=== PATIENT | male | born 1980 | race Caucasian/White ===

== ENCOUNTER 2020-06-07 10:59 | Inpatient (IN) | payer BC ==
[~2020-06-07] VITALS: Ht 177.8 cm; Wt 68.5 kg
[2020-06-07] MEDS ORDERED: SODIUM CHLORIDE FLUSH 10ML SYR IVF ONE (11:30)
[2020-06-07 11:59] LABS: MEAN CORPUSCULAR HEMOGLOBIN 27.2 pg (27.5-34.5); MEAN CORPUSCULAR HGB CONC 32.6 g/dL (33.2-36.2); MEAN PLATELET VOLUME 8.7 fL (7.4-10.4); PLATELET COUNT 155 x10^3/uL (130-400); RED BLOOD COUNT 4.82 x10^6/uL (4.38-5.82); RED CELL DISTRIBUTION WIDTH 16.3 % (9.4-14.8)
[2020-06-07] MEDS ORDERED: FUROSEMIDE 40 MG/4 ML IVPush ONE (12:00)
[2020-06-07 12:11] LABS: ALBUMIN 1.1 g/dL (3.4-5.0); ANION GAP 22 mmol/L (5-15); CALCIUM 7.7 mg/dL (8.5-10.1); CHLORIDE 97 mmol/L (98-107)
[2020-06-07 12:17] LABS: ALANINE AMINOTRANSFERASE 35 U/L (12-78); ALKALINE PHOSPHATASE 92 U/L (45-117); BILIRUBIN,TOTAL 0.2 mg/dL (0.2-1.0); CREATININE 0.94 mg/dL (0.7-1.3); TOTAL PROTEIN 3.9 g/dL (6.4-8.2); TROPONIN I < 0.015 ng/mL (0.000-0.045)
[2020-06-07] MEDS ORDERED: SODIUM CHLORIDE 0.9%, 500ML IVBOLUS ONE (12:30)
[2020-06-07] MEDS ORDERED: PLEASE ENTER ALLERGIES MC SCH (12:30)
--- NOTE | 2020-06-07 12:30 | NUR ---
PT RESTING COMFORTABLY. TBADM. US AT BEDSIDE.
[2020-06-07 12:36] LABS: MD YES
[2020-06-07 12:39] LABS: BAND#(MANUAL) 1.35 x10^3/uL; BANDS%(MANUAL) 10 % (0-7); EOS#(MANUAL) 0.27 x10^3/uL (0.0-0.4); EOS% (MANUAL) 2 % (1-7); LYMPH#(MANUAL) 0.54 x10^3/uL (1-3.4); LYMPHS% (MANUAL) 4 % (22-44); METAMYELOCYTES# (MANUAL) 0.95 x10^3/uL (0-0); METAMYELOCYTES% (MANUAL) 7 % (0-1); MONOS#(MANUAL) 0.95 x10^3/uL (0.3-2.7); MONOS% (MANUAL) 7 % (2-9); SEG#(MANUAL) 9.45 x10^3/uL (1.8-6.8); SEGS% (MANUAL) 70 % (42-75)
[2020-06-07 12:40] LABS: ANISOCYTOSIS 1+; PMNS WITH VACUOLES 1+; POLYCHROMASIA 1+
[2020-06-07 12:41] LABS: <PLATELET ESTIMATE> ADEQUATE; <PLT MORPHOLOGY> NORMAL PLT MORPH
[2020-06-07] MEDS ORDERED: FUROSEMIDE 20 MG/2 ML ONE (12:55)
--- NOTE | 2020-06-07 13:07 | NUR ---
Patient is resting comfortably in bed. Vital Signs within normal limits.
--- NOTE | 2020-06-07 13:12 | NUR ---
PT MEDICATED PER MAR. UPDATED PT ON NEED FOR UA. PT STATES HE WILL TRY HIS BEST.
[2020-06-07 13:19] LABS: CHOL/HDL RATIO 3.3; LDL/HDL RATIO 0.6 (0.5-3.0)
[2020-06-07 13:20] LABS: INTERNATIONAL NORMALIZED RATIO 1.02 (0.93-1.1); PROTHROMBIN TIME 10.9 Seconds (9.6-11.5)
[2020-06-07] MEDS ORDERED: BUTALB/APAP/CAFFEINE 50MG/325MG/40MG PO PRN ×2 (13:30)
[2020-06-07] MEDS ORDERED: GUAIFENESIN/DM 200-20MG, 10ML UDC PO PRN (13:30)
[2020-06-07] MEDS ORDERED: LABETALOL 5MG/ML, 20ML IVPush PRN (13:30)
[2020-06-07] MEDS ORDERED: ENALAPRILAT 1.25 MG/ML, 2ML IVPush PRN (13:30)
[2020-06-07] MEDS ORDERED: ONDANSETRON ODT 4 MG PO PRN (13:30)
[2020-06-07] MEDS ORDERED: ONDANSETRON 2MG/ML, 2ML IVPush PRN (13:30)
[2020-06-07 14:09] LABS: FREE T4 (FREE THYROXINE) 0.81 ng/dL (0.76-1.46)
--- NOTE | 2020-06-07 14:22 | NUR ---
US AT BEDSIDE. RPT CALLED TO [facility]. PT RTG AFTER US.
[2020-06-07 14:26] LABS: MICROSCOPIC INDICATED
[2020-06-07] MEDS ORDERED: BACLOFEN 10 MG TABLET PO PRN (14:30)
[2020-06-07 15:05] VITALS: BP 133/93
[2020-06-07 15:12] VITALS: BP 133/93
[2020-06-07] MEDS: HEPARIN 5,000 UNITS/ML, 1ML SQ SCH (16:34)
[2020-06-07 17:56] LABS: CHLORIDE,URINE RANDOM 96 mmol/L; POTASSIUM,URINE RANDOM 30 mmol/L; SODIUM,URINE RANDOM 61 mmol/L
[2020-06-07] MEDS: ALBUMIN HUMAN 25% 100 ML IV SCH (18:00)
[2020-06-07 18:59] VITALS: BP 111/76
[2020-06-07] MEDS: MELATONIN 5 MG TABLET PO SCH (21:06)
[2020-06-08] MEDS: HEPARIN 5,000 UNITS/ML, 1ML SQ SCH ×4 (00:27→19:26)
[2020-06-08] MEDS: ALBUMIN HUMAN 25% 100 ML IV SCH ×2 (00:28→08:34)
[2020-06-08 02:00] VITALS: BP 114/72
[2020-06-08 03:25] LABS: MEAN CORPUSCULAR HEMOGLOBIN 27.5 pg (27.5-34.5); MEAN CORPUSCULAR HGB CONC 33.6 g/dL (33.2-36.2); MEAN PLATELET VOLUME 8.1 fL (7.4-10.4); PLATELET COUNT 123 x10^3/uL (130-400); RED BLOOD COUNT 3.58 x10^6/uL (4.38-5.82); RED CELL DISTRIBUTION WIDTH 15.8 % (9.4-14.8)
[2020-06-08 03:34] LABS: ALBUMIN 1.6 g/dL (3.4-5.0); ANION GAP 21 mmol/L (5-15); CALCIUM 7.4 mg/dL (8.5-10.1); CHLORIDE 97 mmol/L (98-107)
[2020-06-08 03:40] LABS: ALANINE AMINOTRANSFERASE 24 U/L (12-78); ALKALINE PHOSPHATASE 68 U/L (45-117); BILIRUBIN,TOTAL 0.4 mg/dL (0.2-1.0); CHOL/HDL RATIO 3.3; CHOLESTEROL, TOTAL 62 mg/dL (140-239); CREATININE 1.04 mg/dL (0.7-1.3); HDL CHOL % 31 % (26-37); HDL CHOLESTEROL (DIRECT) 19 mg/dL (40-60); LDL CHOLESTEROL,CALCULATED 10 mg/dL (54-169); LDL/HDL RATIO 0.5 (0.5-3.0); TOTAL PROTEIN 3.6 g/dL (6.4-8.2); TRIGLYCERIDES 164 mg/dL (50-200); VLDL CHOLESTEROL 33 mg/dL (0-25)
[2020-06-08 04:07] LABS: MD YES
[2020-06-08 04:09] LABS: ANISOCYTOSIS 1+; BAND#(MANUAL) 1.08 x10^3/uL; BANDS%(MANUAL) 14 % (0-7); LYMPH#(MANUAL) 0.62 x10^3/uL (1-3.4); LYMPHS% (MANUAL) 8 % (22-44); METAMYELOCYTES# (MANUAL) 0.23 x10^3/uL (0-0); METAMYELOCYTES% (MANUAL) 3 % (0-1); MONOS#(MANUAL) 0.54 x10^3/uL (0.3-2.7); MONOS% (MANUAL) 7 % (2-9); SEG#(MANUAL) 5.24 x10^3/uL (1.8-6.8); SEGS% (MANUAL) 68 % (42-75)
[2020-06-08 04:10] LABS: <PLATELET ESTIMATE> DECREASED; <PLT MORPHOLOGY> NORMAL PLT MORPH; POLYCHROMASIA 1+
[2020-06-08 07:01] VITALS: BP 138/84
[2020-06-08] MEDS: SENNA/DOCUSATE TABLET PO SCH (08:34)
[2020-06-08] MEDS: LISINOPRIL 5 MG TABLET PO SCH ×2 (08:35→21:07)
[2020-06-08 13:00] VITALS: BP 126/80
[2020-06-08] MEDS ORDERED: ALBUMIN HUMAN 5% 500 ML IV SCH ×2 (14:30→14:42)
[2020-06-08 15:01] LABS: HCT (SEDRATE) 29.4 % (39.2-51.8)
[2020-06-08] MEDS: ALBUMIN HUMAN 5% 500 ML IV SCH ×2 (15:50→22:59)
[2020-06-08] MEDS: FUROSEMIDE 80 MG TABLET PO SCH (15:51)
[2020-06-08 17:19] LABS: ANA SCREEN NEGATIVE (Negative)
[2020-06-08 17:24] LABS: CREATININE,URINE RANDOM 51.7 mg/dL
[2020-06-08 18:55] VITALS: BP 124/72
[2020-06-08] MEDS: MELATONIN 5 MG TABLET PO SCH (21:07)
[2020-06-09 01:00] VITALS: BP 121/71
[2020-06-09] MEDS: HEPARIN 5,000 UNITS/ML, 1ML SQ SCH ×3 (05:21→23:51)
[2020-06-09 07:19] VITALS: BP 100/67
[2020-06-09] MEDS: ALBUMIN HUMAN 5% 500 ML IV SCH ×3 (08:15→23:43)
[2020-06-09] MEDS ORDERED: FLUMAZENIL 0.1 MG/1 ML, 5ML ONE (09:22)
[2020-06-09] MEDS ORDERED: NALOXONE 1 MG/ML, 2ML ONE (09:22)
[2020-06-09] MEDS ORDERED: FENTANYL PF 100 MCG/2ML ONE (09:22)
[2020-06-09] MEDS ORDERED: MIDAZOLAM 1 MG/ML, 5ML ONE (09:22)
[2020-06-09] MEDS: LISINOPRIL 5 MG TABLET PO SCH ×2 (10:30→20:54)
[2020-06-09] MEDS: FUROSEMIDE 80 MG TABLET PO SCH ×2 (10:49→16:16)
[2020-06-09] MEDS: SENNA/DOCUSATE TABLET PO SCH (10:49)
[2020-06-09 12:06] VITALS: BP 108/73
[2020-06-09 18:31] VITALS: BP 112/70
[2020-06-09] MEDS: MELATONIN 5 MG TABLET PO SCH (20:53)
[2020-06-10 00:44] VITALS: BP 100/65
[2020-06-10 05:37] LABS: MEAN CORPUSCULAR HEMOGLOBIN 27.5 pg (27.5-34.5); MEAN CORPUSCULAR HGB CONC 33.6 g/dL (33.2-36.2); MEAN PLATELET VOLUME 7.9 fL (7.4-10.4); PLATELET COUNT 113 x10^3/uL (130-400); RED BLOOD COUNT 3.55 x10^6/uL (4.38-5.82)
[2020-06-10 05:45] LABS: CHLORIDE 96 mmol/L (98-107)
[2020-06-10 05:53] LABS: % IRON SATURATION 49 % (20-55); ALANINE AMINOTRANSFERASE 23 U/L (12-78); ALBUMIN 2.2 g/dL (3.4-5.0); ALKALINE PHOSPHATASE 69 U/L (45-117); ANION GAP 19 mmol/L (5-15); BILIRUBIN,TOTAL 0.5 mg/dL (0.2-1.0); CALCIUM 7.4 mg/dL (8.5-10.1); IRON LEVEL 34 mcg/dL (65-175); TOTAL IRON BINDING CAPACITY 70 mcg/dL (250-450); TOTAL PROTEIN 3.8 g/dL (6.4-8.2)
[2020-06-10 06:29] LABS: MD YES
[2020-06-10 06:31] LABS: BAND#(MANUAL) 0.57 x10^3/uL; BANDS%(MANUAL) 9 % (0-7); BASOS#(MANUAL) 0.06 x10^3/uL (0-0.1); BASOS% (MANUAL) 1 % (0-1); LYMPH#(MANUAL) 1.64 x10^3/uL (1-3.4); LYMPHS% (MANUAL) 26 % (22-44); MONOS#(MANUAL) 0.63 x10^3/uL (0.3-2.7); MONOS% (MANUAL) 10 % (2-9); SEGS% (MANUAL) 54 % (42-75)
[2020-06-10 06:32] LABS: <PLATELET ESTIMATE> DECREASED; <PLT MORPHOLOGY> NORMAL PLT MORPH; ANISOCYTOSIS 1+; POLYCHROMASIA 1+
[2020-06-10 06:37] VITALS: BP 111/71
[2020-06-10] MEDS: ALBUMIN HUMAN 5% 500 ML IV SCH ×3 (07:52→23:50)
[2020-06-10] MEDS: HEPARIN 5,000 UNITS/ML, 1ML SQ SCH ×3 (07:52→23:49)
[2020-06-10] MEDS: LISINOPRIL 5 MG TABLET PO SCH ×2 (07:53→20:35)
[2020-06-10] MEDS: SENNA/DOCUSATE TABLET PO SCH (07:53)
[2020-06-10] MEDS: FUROSEMIDE 80 MG TABLET PO SCH ×2 (07:53→15:59)
[2020-06-10 12:23] VITALS: BP 102/62
[2020-06-10] MEDS ORDERED: POTASSIUM CHLORIDE 20 MEQ TAB.ER.PRT PO ONE (12:30)
[2020-06-10 18:39] VITALS: BP 105/64
[2020-06-10] MEDS: MELATONIN 5 MG TABLET PO SCH (20:35)
[2020-06-11 00:23] VITALS: BP 102/54
[2020-06-11 04:43] LABS: MICROSCOPIC NOT IND
[2020-06-11 04:55] LABS: CREATININE,URINE RANDOM 19.8 mg/dL
[2020-06-11 05:45] LABS: MEAN CORPUSCULAR HGB CONC 34.4 g/dL (33.2-36.2); MEAN PLATELET VOLUME 7.9 fL (7.4-10.4); PLATELET COUNT 103 x10^3/uL (130-400); RED BLOOD COUNT 3.28 x10^6/uL (4.38-5.82); RED CELL DISTRIBUTION WIDTH 15.6 % (9.4-14.8)
[2020-06-11 05:46] LABS: ALANINE AMINOTRANSFERASE 22 U/L (12-78); ALBUMIN 2.1 g/dL (3.4-5.0); ANION GAP 22 mmol/L (5-15); CALCIUM 7.4 mg/dL (8.5-10.1); CHLORIDE 96 mmol/L (98-107); CREATININE 0.89 mg/dL (0.7-1.3)
[2020-06-11 05:49] LABS: ALKALINE PHOSPHATASE 81 U/L (45-117); BILIRUBIN,TOTAL 0.7 mg/dL (0.2-1.0); CREATINE KINASE, TOTAL 100 U/L (39-308); TOTAL PROTEIN 3.6 g/dL (6.4-8.2)
[2020-06-11 06:21] LABS: MD YES
[2020-06-11 06:30] LABS: <PLATELET ESTIMATE> DECREASED; <PLT MORPHOLOGY> NORMAL PLT MORPH; ANISOCYTOSIS 1+; BAND#(MANUAL) 1.28 x10^3/uL; BANDS%(MANUAL) 21 % (0-7); LYMPH#(MANUAL) 0.92 x10^3/uL (1-3.4); LYMPHS% (MANUAL) 15 % (22-44); METAMYELOCYTES# (MANUAL) 0.12 x10^3/uL (0-0); METAMYELOCYTES% (MANUAL) 2 % (0-1); MONOS#(MANUAL) 0.31 x10^3/uL (0.3-2.7); MONOS% (MANUAL) 5 % (2-9); MYELOCYTES# (MANUAL) 0.06 x10^3/uL (0-0); MYELOCYTES% (MANUAL) 1 % (0-0); POLYCHROMASIA 1+; SEG#(MANUAL) 3.42 x10^3/uL (1.8-6.8); SEGS% (MANUAL) 56 % (42-75)
[2020-06-11 06:52] VITALS: BP 104/55
[2020-06-11] MEDS: HEPARIN 5,000 UNITS/ML, 1ML SQ SCH ×2 (08:19→17:09)
[2020-06-11] MEDS: SENNA/DOCUSATE TABLET PO SCH (08:19)
[2020-06-11] MEDS: ALBUMIN HUMAN 5% 500 ML IV SCH ×2 (08:19→20:16)
[2020-06-11] MEDS: FUROSEMIDE 80 MG TABLET PO SCH (08:20)
[2020-06-11 09:10] VITALS: BP 111/67
[2020-06-11] MEDS: LISINOPRIL 5 MG TABLET PO SCH ×2 (09:12→20:16)
[2020-06-11] MEDS ORDERED: POTASSIUM CHLORIDE 20 MEQ TAB.ER.PRT PO ONE ×2 (12:00→17:00)
[2020-06-11] MEDS: ERGOCALCIFEROL 50,000 UNIT CAPSULE PO SCH (13:14)
[2020-06-11 14:16] VITALS: BP 93/55
[2020-06-11] MEDS ORDERED: FUROSEMIDE 80 MG TABLET PO SCH (17:00)
[2020-06-11 17:14] VITALS: BP 100/68
[2020-06-11 18:28] VITALS: BP 100/57
[2020-06-11] MEDS: MELATONIN 5 MG TABLET PO SCH (20:16)
[2020-06-12 00:01] VITALS: BP 99/58
[2020-06-12] MEDS: HEPARIN 5,000 UNITS/ML, 1ML SQ SCH ×3 (00:19→21:25)
[2020-06-12 04:50] LABS: MEAN CORPUSCULAR HEMOGLOBIN 27.7 pg (27.5-34.5); MEAN CORPUSCULAR HGB CONC 33.9 g/dL (33.2-36.2); PLATELET COUNT 82 x10^3/uL (130-400); RED BLOOD COUNT 3.14 x10^6/uL (4.38-5.82); RED CELL DISTRIBUTION WIDTH 16.5 % (9.4-14.8)
[2020-06-12 04:59] LABS: ALBUMIN 1.9 g/dL (3.4-5.0); ANION GAP 22 mmol/L (5-15); CALCIUM 7.6 mg/dL (8.5-10.1); CHLORIDE 95 mmol/L (98-107); CREATININE 0.85 mg/dL (0.7-1.3)
[2020-06-12 05:53] LABS: MD YES
[2020-06-12 05:55] LABS: LYMPH#(MANUAL) 0.44 x10^3/uL (1-3.4); LYMPHS% (MANUAL) 12 % (22-44); METAMYELOCYTES# (MANUAL) 0.04 x10^3/uL (0-0); METAMYELOCYTES% (MANUAL) 1 % (0-1); MONOS#(MANUAL) 0.07 x10^3/uL (0.3-2.7); MONOS% (MANUAL) 2 % (2-9); REACTIVE LYMPHS # (MANUAL) 0.07 x10^3/uL (0-0); REACTIVE LYMPHS % (MANUAL) 2 % (0-0); SEG#(MANUAL) 1.63 x10^3/uL (1.8-6.8); SEGS% (MANUAL) 44 % (42-75)
[2020-06-12 05:56] LABS: ANISOCYTOSIS 1+; POLYCHROMASIA 1+
[2020-06-12 05:57] LABS: <PLATELET ESTIMATE> DECREASED; <PLT MORPHOLOGY> NORMAL PLT MORPH
[2020-06-12 05:59] LABS: BAND#(MANUAL) 1.41 x10^3/uL; BANDS%(MANUAL) 38 % (0-7)
[2020-06-12 06:02] LABS: OTHER CELLS # (MANUAL) 0.04 x10^3/uL (0-0); OTHER CELLS % (MANUAL) 1 % (0-0)
[2020-06-12 07:05] VITALS: BP 102/66
[2020-06-12] MEDS: FUROSEMIDE 80 MG TABLET PO SCH ×2 (08:00→17:00)
[2020-06-12] MEDS: SENNA/DOCUSATE TABLET PO SCH ×2 (09:00→10:02)
[2020-06-12] MEDS: LISINOPRIL 5 MG TABLET PO SCH ×3 (09:00→21:25)
[2020-06-12] MEDS ORDERED: MAGNESIUM SULFATE/D5W 100 ML IVPB ONE (09:30)
[2020-06-12] MEDS ORDERED: FUROSEMIDE 40 MG TABLET ONE (09:46)
[2020-06-12 10:10] VITALS: BP 99/65
[2020-06-12] MEDS: POTASSIUM CHLORIDE 20 MEQ TAB.ER.PRT PO SCH ×2 (10:36→17:38)
[2020-06-12] MEDS: ALBUMIN HUMAN 5% 500 ML IV SCH ×2 (11:05→23:03)
[2020-06-12 12:32] VITALS: BP 101/58
[2020-06-12 17:00] VITALS: BP 109/67
[2020-06-12 18:44] VITALS: BP 106/68
[2020-06-12] MEDS: MELATONIN 5 MG TABLET PO SCH (21:25)
[2020-06-13 00:22] VITALS: BP 104/71
[2020-06-13 01:55] VITALS: BP 101/69
[2020-06-13] MEDS: HEPARIN 5,000 UNITS/ML, 1ML SQ SCH ×3 (05:00→22:19)
[2020-06-13 05:43] LABS: MEAN CORPUSCULAR HEMOGLOBIN 27.2 pg (27.5-34.5); MEAN CORPUSCULAR HGB CONC 32.9 g/dL (33.2-36.2); MEAN PLATELET VOLUME 8.3 fL (7.4-10.4); PLATELET COUNT 66 x10^3/uL (130-400); RED BLOOD COUNT 3.09 x10^6/uL (4.38-5.82); RED CELL DISTRIBUTION WIDTH 16.7 % (9.4-14.8)
[2020-06-13 05:57] LABS: CHLORIDE 99 mmol/L (98-107)
[2020-06-13 06:06] LABS: ALANINE AMINOTRANSFERASE 21 U/L (12-78); ALKALINE PHOSPHATASE 64 U/L (45-117); BILIRUBIN,TOTAL 0.7 mg/dL (0.2-1.0); CALCIUM 7.9 mg/dL (8.5-10.1); CREATININE 0.85 mg/dL (0.7-1.3); TOTAL PROTEIN 3.8 g/dL (6.4-8.2)
[2020-06-13 06:08] LABS: ANION GAP 23 mmol/L (5-15)
[2020-06-13 06:14] LABS: MD YES
[2020-06-13 06:24] LABS: MONOS#(MANUAL) 0.16 x10^3/uL (0.3-2.7); MONOS% (MANUAL) 5 % (2-9)
[2020-06-13 06:28] LABS: ANISOCYTOSIS 1+; BAND#(MANUAL) 0.99 x10^3/uL; BANDS%(MANUAL) 31 % (0-7); LYMPH#(MANUAL) 0.22 x10^3/uL (1-3.4); LYMPHS% (MANUAL) 7 % (22-44); METAMYELOCYTES# (MANUAL) 0.06 x10^3/uL (0-0); METAMYELOCYTES% (MANUAL) 2 % (0-1); MYELOCYTES# (MANUAL) 0.06 x10^3/uL (0-0); MYELOCYTES% (MANUAL) 2 % (0-0); POLYCHROMASIA 1+; SEGS% (MANUAL) 53 % (42-75)
[2020-06-13 06:32] LABS: <PLATELET ESTIMATE> DECREASED; <PLT MORPHOLOGY> NORMAL PLT MORPH
[2020-06-13 07:02] VITALS: BP 96/65
[2020-06-13] MEDS: FUROSEMIDE 80 MG TABLET PO SCH ×2 (07:37→17:21)
[2020-06-13] MEDS: SENNA/DOCUSATE TABLET PO SCH (09:00)
[2020-06-13] MEDS: POTASSIUM CHLORIDE 20 MEQ TAB.ER.PRT PO SCH ×2 (09:02→17:21)
[2020-06-13] MEDS: CHOLECALCIFEROL 5,000u TAB PO SCH (09:02)
[2020-06-13] MEDS: LISINOPRIL 5 MG TABLET PO SCH (09:02)
[2020-06-13] MEDS: ALBUMIN HUMAN 5% 500 ML IV SCH ×2 (10:53→23:26)
[2020-06-13 12:27] VITALS: BP 107/72
[2020-06-13] MEDS ORDERED: BACLOFEN 10 MG TABLET PO PRN (14:30)
[2020-06-13 18:20] VITALS: BP 116/79
[2020-06-13] MEDS: LISINOPRIL 10 MG TABLET PO SCH (21:00)
[2020-06-13] MEDS: MELATONIN 5 MG TABLET PO SCH (21:00)
[2020-06-13] MEDS: SIMVASTATIN 10 MG TABLET PO SCH (22:18)
[2020-06-14 00:47] VITALS: BP 110/75
[2020-06-14] MEDS: HEPARIN 5,000 UNITS/ML, 1ML SQ SCH ×3 (05:42→20:43)
[2020-06-14] MEDS: POTASSIUM CHLORIDE 20 MEQ TAB.ER.PRT PO SCH ×2 (08:21→17:00)
[2020-06-14] MEDS: CHOLECALCIFEROL 5,000u TAB PO SCH (08:21)
[2020-06-14] MEDS: LISINOPRIL 10 MG TABLET PO SCH ×2 (08:21→22:16)
[2020-06-14] MEDS: FUROSEMIDE 80 MG TABLET PO SCH ×2 (08:21→17:00)
[2020-06-14] MEDS: SENNA/DOCUSATE TABLET PO SCH (08:21)
[2020-06-14 08:56] VITALS: BP_SYST 136; BP_SYST 158; BP_DIAS 67; BP_DIAS 89
[2020-06-14] MEDS: ALBUMIN HUMAN 5% 500 ML IV SCH ×2 (10:46→22:54)
[2020-06-14 12:21] VITALS: BP 138/66
[2020-06-14] MEDS ORDERED: LORazepam 2 MG/ML, 1ML IVPush ONE (15:00)
[2020-06-14] MEDS ORDERED: LACTULOSE 20 GM/30 ML UDC PO SCH (16:00)
[2020-06-14] MEDS: LACTULOSE 3.3 GM/5 ML ORAL.SOL RC SCH ×2 (16:51→21:50)
[2020-06-14] MEDS ORDERED: OMNIPAQUE 350 MG/ML, 100ML BOTTLE ONE (17:00)
[2020-06-14 19:01] VITALS: BP 110/72
[2020-06-14] MEDS: SIMVASTATIN 10 MG TABLET PO SCH (22:16)
[2020-06-14] MEDS: MELATONIN 5 MG TABLET PO SCH (22:16)
[2020-06-15 00:35] VITALS: BP 106/73
[2020-06-15] MEDS: LACTULOSE 3.3 GM/5 ML ORAL.SOL RC SCH (03:27)
[2020-06-15] MEDS: HEPARIN 5,000 UNITS/ML, 1ML SQ SCH ×3 (04:59→20:43)
[2020-06-15] MEDS: OXYcodone IR 5MG TABLET PO PRN ×2 (04:59→20:43)
[2020-06-15 05:28] LABS: MEAN CORPUSCULAR HEMOGLOBIN 27.1 pg (27.5-34.5); MEAN CORPUSCULAR HGB CONC 33.7 g/dL (33.2-36.2); MEAN PLATELET VOLUME 7.9 fL (7.4-10.4); RED BLOOD COUNT 2.74 x10^6/uL (4.38-5.82); RED CELL DISTRIBUTION WIDTH 16.5 % (9.4-14.8)
[2020-06-15 05:31] LABS: MD YES; PLATELET COUNT 44 x10^3/uL (130-400)
[2020-06-15 05:58] LABS: <PLATELET ESTIMATE> DECREASED; <PLT MORPHOLOGY> NORMAL PLT MORPH; ANISOCYTOSIS 1+; BAND#(MANUAL) 0.78 x10^3/uL; BANDS%(MANUAL) 30 % (0-7); LYMPH#(MANUAL) 0.23 x10^3/uL (1-3.4); LYMPHS% (MANUAL) 9 % (22-44); METAMYELOCYTES# (MANUAL) 0.03 x10^3/uL (0-0); METAMYELOCYTES% (MANUAL) 1 % (0-1); MONOS#(MANUAL) 0.16 x10^3/uL (0.3-2.7); MONOS% (MANUAL) 6 % (2-9); SEGS% (MANUAL) 54 % (42-75); TOXIC GRAN 1+
[2020-06-15 05:59] LABS: POLYCHROMASIA 1+
[2020-06-15 07:51] VITALS: BP 116/79
[2020-06-15] MEDS: POTASSIUM CHLORIDE 20 MEQ TAB.ER.PRT PO SCH ×2 (08:05→16:52)
[2020-06-15] MEDS: CHOLECALCIFEROL 5,000u TAB PO SCH (08:05)
[2020-06-15] MEDS: SENNA/DOCUSATE TABLET PO SCH (08:05)
[2020-06-15] MEDS: FUROSEMIDE 80 MG TABLET PO SCH (08:05)
[2020-06-15] MEDS: LISINOPRIL 10 MG TABLET PO SCH ×2 (08:06→20:42)
[2020-06-15] MEDS: ALBUMIN HUMAN 5% 500 ML IV SCH (10:44)
[2020-06-15] MEDS: LACTULOSE 20 GM/30 ML UDC PO SCH ×3 (11:05→20:42)
[2020-06-15 12:42] VITALS: BP 107/71
[2020-06-15 18:59] VITALS: BP 121/85
[2020-06-15] MEDS: MELATONIN 5 MG TABLET PO SCH (20:42)
[2020-06-15] MEDS: SIMVASTATIN 10 MG TABLET PO SCH (20:42)
[2020-06-16] VITALS (8 sets, daily range): BP systolic 110–128; BP diastolic 66–88
[2020-06-16 05:12] LABS: MEAN CORPUSCULAR HEMOGLOBIN 27.3 pg (27.5-34.5); MEAN PLATELET VOLUME 8.2 fL (7.4-10.4); RED BLOOD COUNT 2.78 x10^6/uL (4.38-5.82); RED CELL DISTRIBUTION WIDTH 16.9 % (9.4-14.8)
[2020-06-16 05:18] LABS: INTERNATIONAL NORMALIZED RATIO 1.23 (0.93-1.1); PROTHROMBIN TIME 13.1 Seconds (9.6-11.5)
[2020-06-16 05:26] LABS: ALBUMIN 2.4 g/dL (3.4-5.0); ANION GAP 24 mmol/L (5-15); CALCIUM 7.8 mg/dL (8.5-10.1); CHLORIDE 106 mmol/L (98-107)
[2020-06-16 05:30] LABS: ALANINE AMINOTRANSFERASE 51 U/L (12-78); ALKALINE PHOSPHATASE 189 U/L (45-117); BILIRUBIN,TOTAL 0.6 mg/dL (0.2-1.0); CREATININE 1.06 mg/dL (0.7-1.3); TOTAL PROTEIN 4.2 g/dL (6.4-8.2)
[2020-06-16] MEDS: HEPARIN 5,000 UNITS/ML, 1ML SQ SCH ×3 (05:38→21:21)
[2020-06-16] MEDS: LACTULOSE 20 GM/30 ML UDC PO SCH ×4 (05:38→21:19)
[2020-06-16 05:55] LABS: MD YES; PLATELET COUNT 44 x10^3/uL (130-400)
[2020-06-16 06:00] LABS: ANISOCYTOSIS 1+; BAND#(MANUAL) 0.82 x10^3/uL; BANDS%(MANUAL) 20 % (0-7); LYMPH#(MANUAL) 0.45 x10^3/uL (1-3.4); LYMPHS% (MANUAL) 11 % (22-44); METAMYELOCYTES# (MANUAL) 0.29 x10^3/uL (0-0); METAMYELOCYTES% (MANUAL) 7 % (0-1); MONOS#(MANUAL) 0.25 x10^3/uL (0.3-2.7); MONOS% (MANUAL) 6 % (2-9); MYELOCYTES# (MANUAL) 0.25 x10^3/uL (0-0); MYELOCYTES% (MANUAL) 6 % (0-0); SEG#(MANUAL) 2.05 x10^3/uL (1.8-6.8); SEGS% (MANUAL) 50 % (42-75)
[2020-06-16 06:01] LABS: <PLATELET ESTIMATE> DECREASED; <PLT MORPHOLOGY> NORMAL PLT MORPH; POLYCHROMASIA 1+; TOXIC GRAN 1+
[2020-06-16 06:02] LABS: OVALOCYTES 1+
[2020-06-16] MEDS: SENNA/DOCUSATE TABLET PO SCH (07:37)
[2020-06-16] MEDS: LISINOPRIL 10 MG TABLET PO SCH ×2 (07:37→21:21)
[2020-06-16] MEDS: CHOLECALCIFEROL 5,000u TAB PO SCH (07:39)
[2020-06-16] MEDS ORDERED: LACTULOSE 3.3 GM/5 ML ORAL.SOL RC ONE (09:00)
[2020-06-16] MEDS ORDERED: LACTULOSE 20 GM/30 ML UDC PO ONE (09:00)
[2020-06-16] MEDS: POTASSIUM CHLORIDE 20 MEQ in SODIUM CHLORIDE 0.9% 250 ML IV SCH ×2 (10:36→21:20)
[2020-06-16] MEDS: MELATONIN 5 MG TABLET PO SCH (21:00)
[2020-06-16] MEDS: SIMVASTATIN 10 MG TABLET PO SCH (21:20)
[2020-06-17] VITALS (7 sets, daily range): BP systolic 113–139; BP diastolic 79–93
[2020-06-17] MEDS: LACTULOSE 20 GM/30 ML UDC PO SCH ×4 (05:04→20:03)
[2020-06-17] MEDS: HEPARIN 5,000 UNITS/ML, 1ML SQ SCH ×3 (05:05→20:04)
[2020-06-17 05:43] LABS: ALBUMIN 2.2 g/dL (3.4-5.0); ANION GAP 26 mmol/L (5-15); CALCIUM 7.9 mg/dL (8.5-10.1); CHLORIDE 107 mmol/L (98-107)
[2020-06-17 05:46] LABS: ALANINE AMINOTRANSFERASE 78 U/L (12-78); ALKALINE PHOSPHATASE 403 U/L (45-117); BILIRUBIN,TOTAL 0.6 mg/dL (0.2-1.0); CREATININE 1.01 mg/dL (0.7-1.3); TOTAL PROTEIN 4.1 g/dL (6.4-8.2)
[2020-06-17 05:48] LABS: MEAN CORPUSCULAR HGB CONC 32.7 g/dL (33.2-36.2); MEAN PLATELET VOLUME 8.7 fL (7.4-10.4); RED CELL DISTRIBUTION WIDTH 17.2 % (9.4-14.8)
[2020-06-17 06:32] LABS: MD YES
[2020-06-17 06:33] LABS: PLATELET COUNT 39 x10^3/uL (130-400)
[2020-06-17 06:35] LABS: BAND#(MANUAL) 1.07 x10^3/uL; BANDS%(MANUAL) 21 % (0-7); LYMPH#(MANUAL) 0.97 x10^3/uL (1-3.4); LYMPHS% (MANUAL) 19 % (22-44); METAMYELOCYTES# (MANUAL) 0.36 x10^3/uL (0-0); METAMYELOCYTES% (MANUAL) 7 % (0-1); MONOS#(MANUAL) 0.15 x10^3/uL (0.3-2.7); MONOS% (MANUAL) 3 % (2-9); SEG#(MANUAL) 2.55 x10^3/uL (1.8-6.8); SEGS% (MANUAL) 50 % (42-75)
[2020-06-17 06:36] LABS: TOXIC GRAN 1+
[2020-06-17 06:37] LABS: <PLATELET ESTIMATE> DECREASED; <PLT MORPHOLOGY> NORMAL PLT MORPH; ANISOCYTOSIS 1+; OVALOCYTES 1+; POLYCHROMASIA 1+
[2020-06-17] MEDS ORDERED: LIDOCAINE 1%, 10ML ONE (06:45)
[2020-06-17] MEDS ORDERED: DEXTROSE 50%, 50ML SYRINGE IVPush ONE (07:00)
[2020-06-17] MEDS: CHOLECALCIFEROL 5,000u TAB PO SCH (07:51)
[2020-06-17] MEDS: LISINOPRIL 10 MG TABLET PO SCH ×2 (07:51→20:03)
[2020-06-17] MEDS: SENNA/DOCUSATE TABLET PO SCH (07:51)
[2020-06-17] MEDS: D5%-0.45NACL+KCL 20MEQ 1,000 ML IV SCH (07:58)
[2020-06-17 08:14] LABS: INTERNATIONAL NORMALIZED RATIO 1.32 (0.93-1.1)
[2020-06-17] MEDS: POTASSIUM CHLORIDE 20 MEQ in SODIUM CHLORIDE 0.9% 250 ML IV SCH ×2 (09:22→20:27)
[2020-06-17] MEDS: SIMVASTATIN 10 MG TABLET PO SCH (20:03)
[2020-06-17] MEDS: MELATONIN 5 MG TABLET PO SCH (20:04)
[2020-06-18] VITALS (11 sets, daily range): BP systolic 105–145; BP diastolic 73–93
[2020-06-18] MEDS: D5%-0.45NACL+KCL 20MEQ 1,000 ML IV SCH ×2 (04:50→23:20)
[2020-06-18] MEDS: HEPARIN 5,000 UNITS/ML, 1ML SQ SCH (05:00)
[2020-06-18 05:15] LABS: MEAN CORPUSCULAR HEMOGLOBIN 26.8 pg (27.5-34.5); MEAN CORPUSCULAR HGB CONC 32.5 g/dL (33.2-36.2); MEAN PLATELET VOLUME 8.5 fL (7.4-10.4); RED CELL DISTRIBUTION WIDTH 17.3 % (9.4-14.8)
[2020-06-18 05:17] LABS: MD YES; PLATELET COUNT 31 x10^3/uL (130-400)
[2020-06-18] MEDS: LACTULOSE 20 GM/30 ML UDC PO SCH ×4 (05:46→20:04)
[2020-06-18 06:35] LABS: ALANINE AMINOTRANSFERASE 103 U/L (12-78); ANION GAP 24 mmol/L (5-15); CALCIUM 7.6 mg/dL (8.5-10.1); CHLORIDE 103 mmol/L (98-107); CREATININE 0.85 mg/dL (0.7-1.3)
[2020-06-18 06:37] LABS: ALKALINE PHOSPHATASE 506 U/L (45-117); BILIRUBIN,TOTAL 0.6 mg/dL (0.2-1.0); TOTAL PROTEIN 4.1 g/dL (6.4-8.2)
[2020-06-18 07:21] LABS: BAND#(MANUAL) 1.59 x10^3/uL; BANDS%(MANUAL) 27 % (0-7); LYMPH#(MANUAL) 1.12 x10^3/uL (1-3.4); LYMPHS% (MANUAL) 19 % (22-44); METAMYELOCYTES# (MANUAL) 0.18 x10^3/uL (0-0); METAMYELOCYTES% (MANUAL) 3 % (0-1); MONOS#(MANUAL) 0.24 x10^3/uL (0.3-2.7); MONOS% (MANUAL) 4 % (2-9); SEG#(MANUAL) 2.77 x10^3/uL (1.8-6.8); SEGS% (MANUAL) 47 % (42-75)
[2020-06-18 07:23] LABS: OVALOCYTES 1+; TOXIC GRAN 1+
[2020-06-18 07:24] LABS: <PLATELET ESTIMATE> DECREASED; <PLT MORPHOLOGY> NORMAL PLT MORPH; ANISOCYTOSIS 1+
[2020-06-18] MEDS ORDERED: DEXTROSE 50%, 50ML SYRINGE IVPush ONE (08:00)
[2020-06-18] MEDS: SENNA/DOCUSATE TABLET PO SCH (08:23)
[2020-06-18] MEDS: CHOLECALCIFEROL 5,000u TAB PO SCH (08:23)
[2020-06-18] MEDS: LISINOPRIL 10 MG TABLET PO SCH ×2 (08:23→20:05)
[2020-06-18] MEDS: POTASSIUM CHLORIDE 20 MEQ in SODIUM CHLORIDE 0.9% 250 ML IV SCH ×2 (10:01→21:33)
[2020-06-18 10:27] LABS: IRON LEVEL 60 mcg/dL (65-175)
[2020-06-18 10:28] LABS: % IRON SATURATION 44 % (20-55); TOTAL IRON BINDING CAPACITY 136 mcg/dL (250-450)
[2020-06-18] MEDS: ERGOCALCIFEROL 50,000 UNIT CAPSULE PO SCH (12:14)
[2020-06-18] MEDS: MELATONIN 5 MG TABLET PO SCH (20:05)
[2020-06-19 00:04] VITALS: BP 118/85
[2020-06-19] MEDS: LACTULOSE 20 GM/30 ML UDC PO SCH ×4 (05:27→19:47)
[2020-06-19 05:55] LABS: MEAN CORPUSCULAR HEMOGLOBIN 26.9 pg (27.5-34.5); MEAN PLATELET VOLUME 8.4 fL (7.4-10.4); RED BLOOD COUNT 3.18 x10^6/uL (4.38-5.82); RED CELL DISTRIBUTION WIDTH 17.5 % (9.4-14.8)
[2020-06-19 06:08] LABS: CHLORIDE 105 mmol/L (98-107); PLATELET COUNT 41 x10^3/uL (130-400)
[2020-06-19 06:13] LABS: ALANINE AMINOTRANSFERASE 114 U/L (12-78); ALBUMIN 1.9 g/dL (3.4-5.0); ALKALINE PHOSPHATASE 532 U/L (45-117); BILIRUBIN,TOTAL 0.4 mg/dL (0.2-1.0); CALCIUM 7.4 mg/dL (8.5-10.1); CREATININE 0.82 mg/dL (0.7-1.3); TOTAL PROTEIN 4.1 g/dL (6.4-8.2)
[2020-06-19 06:21] LABS: ANION GAP 26 mmol/L (5-15)
[2020-06-19 06:29] LABS: MD YES
[2020-06-19 06:32] LABS: BAND#(MANUAL) 2.03 x10^3/uL; BANDS%(MANUAL) 27 % (0-7); LYMPH#(MANUAL) 0.83 x10^3/uL (1-3.4); LYMPHS% (MANUAL) 11 % (22-44); METAMYELOCYTES# (MANUAL) 0.23 x10^3/uL (0-0); METAMYELOCYTES% (MANUAL) 3 % (0-1); MONOS% (MANUAL) 4 % (2-9); MYELOCYTES# (MANUAL) 0.08 x10^3/uL (0-0); MYELOCYTES% (MANUAL) 1 % (0-0); SEG#(MANUAL) 4.05 x10^3/uL (1.8-6.8); SEGS% (MANUAL) 54 % (42-75)
[2020-06-19 06:33] LABS: OVALOCYTES 1+; TOXIC GRAN 1+
[2020-06-19 06:34] LABS: <PLATELET ESTIMATE> DECREASED; <PLT MORPHOLOGY> NORMAL PLT MORPH
[2020-06-19] MEDS ORDERED: DEXTROSE 50%, 50ML SYRINGE IVPush ONE (07:00)
[2020-06-19 07:40] VITALS: BP 119/87
[2020-06-19] MEDS: LISINOPRIL 10 MG TABLET PO SCH ×2 (07:59→19:46)
[2020-06-19] MEDS: CHOLECALCIFEROL 5,000u TAB PO SCH (07:59)
[2020-06-19] MEDS: SENNA/DOCUSATE TABLET PO SCH (07:59)
[2020-06-19] MEDS: D5%-0.45NACL+KCL 20MEQ 1,000 ML IV SCH (08:48)
[2020-06-19] MEDS: CEFTRIAXONE PMX 2GM/50ML 50 ML IVPB SCH (08:48)
[2020-06-19] MEDS: AZITHROMYCIN 500 MG TABLET PO SCH (09:45)
[2020-06-19] MEDS ORDERED: FUROSEMIDE 40 MG/4 ML ONE (11:33)
[2020-06-19] MEDS: FUROSEMIDE 40 MG/4 ML IV SCH (11:39)
[2020-06-19 12:22] LABS: FREE T4 (FREE THYROXINE) 0.35 ng/dL (0.76-1.46)
[2020-06-19 12:47] LABS: INTERNATIONAL NORMALIZED RATIO 1.2 (0.93-1.1); PROTHROMBIN TIME 12.8 Seconds (9.6-11.5)
[2020-06-19 12:56] VITALS: BP 112/80
[2020-06-19] MEDS: MELATONIN 5 MG TABLET PO SCH (19:47)
[2020-06-19 20:04] VITALS: BP 117/84
[2020-06-19] MEDS ORDERED: GLUCAGON 1 MG IM PRN (23:30)
[2020-06-19] MEDS ORDERED: DEXTROSE 4 GM TAB.CHEW PO PRN (23:30)
[2020-06-20] VITALS (13 sets, daily range): BP systolic 96–126; BP diastolic 64–77
[2020-06-20] MEDS: DEXTROSE 50%, 50ML SYRINGE IVPush PRN ×4 (00:19→23:35)
[2020-06-20 04:16] LABS: MEAN CORPUSCULAR HEMOGLOBIN 26.9 pg (27.5-34.5); MEAN CORPUSCULAR HGB CONC 32.3 g/dL (33.2-36.2); MEAN PLATELET VOLUME 9.1 fL (7.4-10.4); RED BLOOD COUNT 3.57 x10^6/uL (4.38-5.82); RED CELL DISTRIBUTION WIDTH 17.7 % (9.4-14.8)
[2020-06-20 04:22] LABS: PLATELET COUNT 40 x10^3/uL (130-400)
[2020-06-20 04:28] LABS: ALANINE AMINOTRANSFERASE 129 U/L (12-78); ANION GAP 26 mmol/L (5-15); CALCIUM 7.9 mg/dL (8.5-10.1); CHLORIDE 107 mmol/L (98-107); CREATININE 0.82 mg/dL (0.7-1.3)
[2020-06-20 04:30] LABS: ALKALINE PHOSPHATASE 595 U/L (45-117); BILIRUBIN,TOTAL 0.3 mg/dL (0.2-1.0); TOTAL PROTEIN 4.4 g/dL (6.4-8.2)
[2020-06-20 04:45] LABS: MD YES
[2020-06-20 04:48] LABS: BAND#(MANUAL) 1.07 x10^3/uL; BANDS%(MANUAL) 13 % (0-7); LYMPH#(MANUAL) 0.57 x10^3/uL (1-3.4); LYMPHS% (MANUAL) 7 % (22-44); MONOS#(MANUAL) 0.33 x10^3/uL (0.3-2.7); MONOS% (MANUAL) 4 % (2-9); SEG#(MANUAL) 6.23 x10^3/uL (1.8-6.8); SEGS% (MANUAL) 76 % (42-75)
[2020-06-20 04:49] LABS: <PLATELET ESTIMATE> DECREASED; <PLT MORPHOLOGY> NORMAL PLT MORPH; ANISOCYTOSIS 1+; MICROCYTOSIS 1+; OVALOCYTES 1+
[2020-06-20] MEDS: D5%-0.45NACL+KCL 20MEQ 1,000 ML IV SCH (05:02)
[2020-06-20] MEDS ORDERED: DIPHENHYDRAMINE 12.5MG/5ML, 10ML UDC PO ONE (06:00)
[2020-06-20] MEDS: LACTULOSE 20 GM/30 ML UDC PO SCH ×4 (06:00→21:48)
[2020-06-20] MEDS: CEFTRIAXONE PMX 2GM/50ML 50 ML IVPB SCH (08:08)
[2020-06-20] MEDS: SENNA/DOCUSATE TABLET PO SCH (09:00)
[2020-06-20] MEDS: FUROSEMIDE 40 MG/4 ML IV SCH (09:56)
[2020-06-20] MEDS: LISINOPRIL 10 MG TABLET PO SCH ×2 (09:57→21:48)
[2020-06-20] MEDS: SODIUM CHLORIDE FLUSH 10ML SYR IVF SCH ×2 (09:57→21:00)
[2020-06-20] MEDS ORDERED: FENTANYL PF 100 MCG/2ML ONE (11:05)
[2020-06-20] MEDS ORDERED: MIDAZOLAM 1 MG/ML, 5ML ONE (11:05)
[2020-06-20] MEDS ORDERED: NALOXONE 1 MG/ML, 2ML ONE (11:06)
[2020-06-20] MEDS ORDERED: FLUMAZENIL 0.1 MG/1 ML, 5ML ONE (11:06)
[2020-06-20] MEDS: AZITHROMYCIN 500 MG TABLET PO SCH (12:18)
[2020-06-20] MEDS: CHOLECALCIFEROL 5,000u TAB PO SCH (12:18)
[2020-06-20] MEDS: MELATONIN 5 MG TABLET PO SCH (21:48)
[2020-06-21 01:23] VITALS: BP 95/63
[2020-06-21] MEDS: DEXTROSE 50%, 50ML SYRINGE IVPush PRN ×5 (01:48→12:43)
[2020-06-21] MEDS ORDERED: POTASSIUM CHLORIDE 20 MEQ in DEXTROSE 5% 1,000 ML IV SCH (04:00)
[2020-06-21 05:26] LABS: BASOPHILS % (AUTO) 1 % (0-1); EOSINOPHILS % (AUTO) 0 % (1-7); LYMPHOCYTES % (AUTO) 26 % (22-44); MEAN CORPUSCULAR HEMOGLOBIN 27.1 pg (27.5-34.5); MEAN CORPUSCULAR HGB CONC 31.8 g/dL (33.2-36.2); MEAN PLATELET VOLUME 8.9 fL (7.4-10.4); MONOCYTES % (AUTO) 7 % (2-9); NEUTROPHILS % (AUTO) 67 % (42-75); PLATELET COUNT 76 x10^3/uL (130-400); RED CELL DISTRIBUTION WIDTH 18.5 % (9.4-14.8)
[2020-06-21 05:35] LABS: ALANINE AMINOTRANSFERASE 136 U/L (12-78); ALBUMIN 1.9 g/dL (3.4-5.0); ANION GAP 28 mmol/L (5-15); CALCIUM 8.4 mg/dL (8.5-10.1); CHLORIDE 107 mmol/L (98-107)
[2020-06-21 05:37] LABS: ALKALINE PHOSPHATASE 904 U/L (45-117); BILIRUBIN,TOTAL 0.3 mg/dL (0.2-1.0); TOTAL PROTEIN 4.1 g/dL (6.4-8.2)
[2020-06-21 05:42] LABS: ANION GAP 27 mmol/L (5-15); CALCIUM 8.2 mg/dL (8.5-10.1); CHLORIDE 107 mmol/L (98-107)
[2020-06-21] MEDS: LACTULOSE 20 GM/30 ML UDC PO SCH (05:42)
[2020-06-21 05:43] LABS: CREATININE 0.93 mg/dL (0.7-1.3)
[2020-06-21 05:59] LABS: MD SCAN
[2020-06-21] MEDS ORDERED: SODIUM BICARB 8.4%, 50ML SYRINGE IVPush ONE ×2 (07:00→14:00)
[2020-06-21] MEDS ORDERED: SODIUM BICARBONATE 1 MEQ/ML, 50ML VIAL ONE (07:10)
[2020-06-21] MEDS: SODIUM BICARBONATE 8.4% 150 MEQ in DEXTROSE 5% 1,000 ML IV SCH ×2 (07:11→18:59)
[2020-06-21 07:29] LABS: O2 FLOW ROOM AIR L/min
[2020-06-21] MEDS ORDERED: D5%-0.45NACL+KCL 20MEQ 1,000 ML IV SCH (07:30)
[2020-06-21 07:43] LABS: INTERNATIONAL NORMALIZED RATIO 1.25 (0.93-1.1); PROTHROMBIN TIME 13.3 Seconds (9.6-11.5)
[2020-06-21] MEDS: SENNA/DOCUSATE TABLET PO SCH (08:29)
[2020-06-21] MEDS: LISINOPRIL 10 MG TABLET PO SCH (09:00)
[2020-06-21] MEDS: CEFTRIAXONE PMX 2GM/50ML 50 ML IVPB SCH (09:04)
[2020-06-21] MEDS: FUROSEMIDE 40 MG/4 ML IV SCH (09:05)
[2020-06-21] MEDS: AZITHROMYCIN 500 MG TABLET PO SCH (09:05)
[2020-06-21] MEDS: SODIUM CHLORIDE FLUSH 10ML SYR IVF SCH ×2 (09:05→20:53)
[2020-06-21] MEDS: SULFAMETH./TRIMETHOPRIM DS 800MG/160MG TABLET PO SCH (09:58)
[2020-06-21] MEDS ORDERED: CEFTRIAXONE PMX 1GM/50ML 50 ML IV SCH (11:00)
[2020-06-21 13:05] LABS: ANION GAP 30 mmol/L (5-15); CALCIUM 8.3 mg/dL (8.5-10.1); CHLORIDE 106 mmol/L (98-107); CREATININE 0.91 mg/dL (0.7-1.3)
[2020-06-21] MEDS ORDERED: SODIUM BICARB 8.4%, 50ML SYRINGE ONE (14:02)
[2020-06-21 17:37] LABS: ANION GAP 32 mmol/L (5-15); CALCIUM 7.9 mg/dL (8.5-10.1); CHLORIDE 105 mmol/L (98-107); CREATININE 0.93 mg/dL (0.7-1.3)
[2020-06-21] MEDS: MELATONIN 5 MG TABLET PO SCH (20:52)
[2020-06-21] MEDS: LISINOPRIL 5 MG TABLET PO SCH (20:52)
[2020-06-21] MEDS ORDERED: LACTULOSE 20 GM/30 ML UDC PO SCH (21:00)
[2020-06-21] MEDS ORDERED: SODIUM BICARBONATE 650 MG TABLET PO SCH (21:00)
[2020-06-22 03:57] LABS: MEAN CORPUSCULAR HEMOGLOBIN 26.7 pg (27.5-34.5); MEAN CORPUSCULAR HGB CONC 32.4 g/dL (33.2-36.2); MEAN PLATELET VOLUME 8.7 fL (7.4-10.4); PLATELET COUNT 76 x10^3/uL (130-400); RED BLOOD COUNT 3.07 x10^6/uL (4.38-5.82); RED CELL DISTRIBUTION WIDTH 17.9 % (9.4-14.8)
[2020-06-22 04:10] LABS: ALANINE AMINOTRANSFERASE 123 U/L (12-78); ALBUMIN 1.5 g/dL (3.4-5.0); ANION GAP 31 mmol/L (5-15); CALCIUM 7.8 mg/dL (8.5-10.1); CHLORIDE 103 mmol/L (98-107)
[2020-06-22 04:13] LABS: ALKALINE PHOSPHATASE 878 U/L (45-117); BILIRUBIN,TOTAL 0.2 mg/dL (0.2-1.0); CREATININE 0.97 mg/dL (0.7-1.3); TOTAL PROTEIN 3.6 g/dL (6.4-8.2)
[2020-06-22] MEDS: SODIUM BICARBONATE 8.4% 150 MEQ in DEXTROSE 5% 1,000 ML IV SCH ×2 (04:26→17:44)
[2020-06-22 04:27] VITALS: BP 107/73
[2020-06-22 04:34] LABS: MD YES
[2020-06-22 04:37] LABS: BAND#(MANUAL) 0.37 x10^3/uL; BANDS%(MANUAL) 5 % (0-7); LYMPH#(MANUAL) 1.26 x10^3/uL (1-3.4); LYMPHS% (MANUAL) 17 % (22-44); MONOS#(MANUAL) 0.67 x10^3/uL (0.3-2.7); MONOS% (MANUAL) 9 % (2-9); SEG#(MANUAL) 5.11 x10^3/uL (1.8-6.8); SEGS% (MANUAL) 69 % (42-75)
[2020-06-22 04:38] LABS: <PLATELET ESTIMATE> DECREASED; <PLT MORPHOLOGY> NORMAL PLT MORPH; ANISOCYTOSIS 1+; MICROCYTOSIS 1+; OVALOCYTES 1+
[2020-06-22] MEDS: ACETAMINOPHEN 325 MG TABLET PO PRN ×2 (06:05→17:08)
[2020-06-22] MEDS: MEROPENEM 1 GM in SODIUM CHLORIDE 0.9% 100 ML IV SCH ×3 (07:31→23:57)
[2020-06-22 07:58] LABS: MICROSCOPIC AUTO
[2020-06-22 08:00] LABS: CHLORIDE,URINE RANDOM 17 mmol/L; POTASSIUM,URINE RANDOM 29 mmol/L; SODIUM,URINE RANDOM 42 mmol/L
[2020-06-22] MEDS: SODIUM BICARBONATE 650 MG TABLET PO SCH ×3 (08:20→20:27)
[2020-06-22] MEDS: RIFAXIMIN 550 MG TABLET PO SCH (08:20)
[2020-06-22] MEDS: SULFAMETH./TRIMETHOPRIM DS 800MG/160MG TABLET PO SCH (08:20)
[2020-06-22] MEDS: LISINOPRIL 5 MG TABLET PO SCH ×2 (08:20→20:27)
[2020-06-22] MEDS: SODIUM CHLORIDE FLUSH 10ML SYR IVF SCH ×2 (08:20→20:27)
[2020-06-22] MEDS: PSYLLIUM PACKET PO SCH ×2 (10:01→20:18)
[2020-06-22] MEDS ORDERED: POTASSIUM PHOSPHATE 22 MEQ in SODIUM CHLORIDE 0.9% 500 ML IV ONE (10:30)
[2020-06-22] MEDS: DEXTROSE 50%, 50ML SYRINGE IVPush PRN ×3 (11:30→17:44)
[2020-06-22] MEDS ORDERED: FUROSEMIDE 40 MG/4 ML ONE (15:38)
[2020-06-22] MEDS ORDERED: FUROSEMIDE 40 MG/4 ML IV ONE (16:00)
[2020-06-22 16:12] LABS: MEAN CORPUSCULAR HEMOGLOBIN 26.6 pg (27.5-34.5); MEAN CORPUSCULAR HGB CONC 31.9 g/dL (33.2-36.2); MEAN PLATELET VOLUME 9.6 fL (7.4-10.4); PLATELET COUNT 78 x10^3/uL (130-400); RED BLOOD COUNT 3.26 x10^6/uL (4.38-5.82); RED CELL DISTRIBUTION WIDTH 17.4 % (9.4-14.8)
[2020-06-22 16:19] LABS: ANION GAP 30 mmol/L (5-15); CALCIUM 7.8 mg/dL (8.5-10.1); CHLORIDE 101 mmol/L (98-107); CREATININE 0.68 mg/dL (0.7-1.3)
[2020-06-22 16:27] LABS: MD YES
[2020-06-22] MEDS ORDERED: POTASSIUM CHLORIDE 20 MEQ TAB.ER.PRT PO SCH (16:30)
[2020-06-22 16:31] LABS: BAND#(MANUAL) 0.79 x10^3/uL; BANDS%(MANUAL) 10 % (0-7); LYMPH#(MANUAL) 2.29 x10^3/uL (1-3.4); LYMPHS% (MANUAL) 29 % (22-44); METAMYELOCYTES% (MANUAL) 5 % (0-1); MONOS#(MANUAL) 0.47 x10^3/uL (0.3-2.7); MONOS% (MANUAL) 6 % (2-9); REACTIVE LYMPHS # (MANUAL) 0.16 x10^3/uL (0-0); REACTIVE LYMPHS % (MANUAL) 2 % (0-0); SEG#(MANUAL) 3.79 x10^3/uL (1.8-6.8); SEGS% (MANUAL) 48 % (42-75)
[2020-06-22 16:32] LABS: ANISOCYTOSIS 1+
[2020-06-22 16:33] LABS: <PLATELET ESTIMATE> DECREASED; <PLT MORPHOLOGY> NORMAL PLT MORPH
[2020-06-22] MEDS ORDERED: FUROSEMIDE 40 MG/4 ML IV SCH ×2 (17:00→21:00)
[2020-06-22] MEDS: ALBUMIN HUMAN 25% 100 ML IV SCH (17:08)
[2020-06-22 17:22] LABS: CLOSTRIDIUM DIFFICILE ANTIGEN NEGATIVE; CLOSTRIDIUM DIFFICILE TOXIN NEGATIVE (Negative)
[2020-06-22] MEDS: MELATONIN 5 MG TABLET PO SCH (20:27)
[2020-06-22] MEDS ORDERED: DEXMEDETOMIDINE 200 MCG in SODIUM CHLORIDE 0.9% 48 ML IV PRN (21:30)
[2020-06-22] MEDS ORDERED: LORazepam 2 MG/ML, 1ML IVPush ONE (21:30)
[2020-06-22] MEDS ORDERED: PROPOFOL 10 MG/ML, 20ML ONE (22:46)
[2020-06-22] MEDS ORDERED: ROCURONIUM 10MG/ML,5ML ONE ×2 (22:46)
[2020-06-23] VITALS (9 sets, daily range): BP systolic 85–120; BP diastolic 58–73
[2020-06-23] MEDS ORDERED: PROPOFOL 100 ML IV ONE (00:01)
[2020-06-23] MEDS: ACETAMINOPHEN 325 MG TABLET PO PRN (00:49)
[2020-06-23] MEDS: ALBUMIN HUMAN 25% 100 ML IV SCH ×4 (00:49→20:11)
[2020-06-23] MEDS: PHENYLEPHRINE 50 MG in SODIUM CHLORIDE 0.9% 245 ML IV PRN ×2 (00:51→14:34)
[2020-06-23] MEDS: DEXTROSE 50%, 50ML SYRINGE IVPush PRN ×5 (01:00→12:13)
[2020-06-23 04:44] LABS: MEAN CORPUSCULAR HEMOGLOBIN 26.9 pg (27.5-34.5); MEAN CORPUSCULAR HGB CONC 32.6 g/dL (33.2-36.2); MEAN PLATELET VOLUME 8.5 fL (7.4-10.4); PLATELET COUNT 58 x10^3/uL (130-400); RED BLOOD COUNT 2.77 x10^6/uL (4.38-5.82); RED CELL DISTRIBUTION WIDTH 17.7 % (9.4-14.8)
[2020-06-23 04:55] LABS: ANION GAP 25 mmol/L (5-15); CALCIUM 7.7 mg/dL (8.5-10.1); CHLORIDE 99 mmol/L (98-107); CREATININE 0.99 mg/dL (0.7-1.3)
[2020-06-23 05:49] LABS: MD YES
[2020-06-23 05:53] LABS: <PLATELET ESTIMATE> DECREASED; <PLT MORPHOLOGY> NORMAL PLT MORPH; ANISOCYTOSIS 1+; BAND#(MANUAL) 0.66 x10^3/uL; BANDS%(MANUAL) 13 % (0-7); EOS#(MANUAL) 0.05 x10^3/uL (0.0-0.4); EOS% (MANUAL) 1 % (1-7); LYMPH#(MANUAL) 1.84 x10^3/uL (1-3.4); LYMPHS% (MANUAL) 36 % (22-44); METAMYELOCYTES# (MANUAL) 0.31 x10^3/uL (0-0); METAMYELOCYTES% (MANUAL) 6 % (0-1); POLYCHROMASIA 1+; SEG#(MANUAL) 2.24 x10^3/uL (1.8-6.8); SEGS% (MANUAL) 44 % (42-75); SMUDGE CELLS 1+
[2020-06-23 05:55] LABS: MICROCYTOSIS 1+
[2020-06-23] MEDS: MEROPENEM 1 GM in SODIUM CHLORIDE 0.9% 100 ML IV SCH ×3 (06:40→23:41)
[2020-06-23] MEDS ORDERED: SODIUM BICARBONATE 8.4% 150 MEQ in DEXTROSE 10% 1,000 ML IV SCH (07:00)
[2020-06-23] MEDS: MICAFUNGIN 100 MG in SODIUM CHLORIDE 0.9% 100 ML IV SCH (07:19)
[2020-06-23] MEDS: PROPOFOL 100 ML IV PRN ×3 (07:31→20:11)
[2020-06-23] MEDS ORDERED: NOREPINEPHRINE 1 MG/ML, 4ML ONE (08:28)
[2020-06-23] MEDS ORDERED: ALBUMIN HUMAN 25% 100 ML ONE (08:42)
[2020-06-23] MEDS: NOREPINEPHRINE 8 MG in SODIUM CHLORIDE 0.9% 242 ML IV PRN ×2 (08:44→17:49)
[2020-06-23] MEDS: RIFAXIMIN 550 MG TABLET PO SCH (08:45)
[2020-06-23] MEDS: SODIUM CHLORIDE FLUSH 10ML SYR IVF SCH ×2 (08:46→20:11)
[2020-06-23] MEDS: PSYLLIUM PACKET PO SCH ×2 (08:52→20:11)
[2020-06-23] MEDS: SODIUM BICARBONATE 650 MG TABLET PO SCH ×2 (08:56→20:11)
[2020-06-23] MEDS ORDERED: DEXTROSE 70% IV SCH (10:00)
[2020-06-23] MEDS ORDERED: STERILE WATER IV SCH (10:00)
[2020-06-23] MEDS: SULFAMETH/TRIMETHOPRIM 40-8MG/ML SUSP. PO SCH (10:04)
[2020-06-23] MEDS ORDERED: AZITHROMYCIN 600 MG TABLET PO SCH (10:30)
[2020-06-23] MEDS ORDERED: LIDOCAINE 1%, 10ML ONE (10:59)
[2020-06-23] MEDS: OXYcodone IR 5MG TABLET PO PRN ×2 (11:15→20:45)
[2020-06-23] MEDS: ACETAMINOPHEN 650 MG/20.3 ML UDC PO PRN ×2 (11:15→20:44)
[2020-06-23 12:27] LABS: ABSOLUTE RETICS # 0.029 x10^6/uL (0.5-1.5); MEAN CORPUSCULAR HEMOGLOBIN 27.1 pg (27.5-34.5); MEAN CORPUSCULAR HGB CONC 32.4 g/dL (33.2-36.2); MEAN PLATELET VOLUME 8.9 fL (7.4-10.4); PLATELET COUNT 57 x10^3/uL (130-400); RED BLOOD COUNT 2.92 x10^6/uL (4.38-5.82); RED CELL DISTRIBUTION WIDTH 17.6 % (9.4-14.8); RETICULOCYTE COUNT % 1.01 % (0.5-1.5)
[2020-06-23] MEDS ORDERED: RASBURICASE 3 MG in SODIUM CHLORIDE 0.9% 50 ML IV ONE (12:30)
[2020-06-23] MEDS: methylPREDNISolone SOD SUCC 125 MG/2 ML IVPush SCH ×2 (13:19→18:39)
[2020-06-23 14:00] LABS: MD YES
[2020-06-23 14:46] LABS: ANISOCYTOSIS 1+; BAND#(MANUAL) 1.26 x10^3/uL; BANDS%(MANUAL) 20 % (0-7); LYMPH#(MANUAL) 2.02 x10^3/uL (1-3.4); LYMPHS% (MANUAL) 32 % (22-44); METAMYELOCYTES# (MANUAL) 0.44 x10^3/uL (0-0); METAMYELOCYTES% (MANUAL) 7 % (0-1); MICROCYTOSIS 1+; MONOS#(MANUAL) 0.13 x10^3/uL (0.3-2.7); MONOS% (MANUAL) 2 % (2-9); MYELOCYTES# (MANUAL) 0.13 x10^3/uL (0-0); MYELOCYTES% (MANUAL) 2 % (0-0); POLYCHROMASIA 1+; REACTIVE LYMPHS # (MANUAL) 0.13 x10^3/uL (0-0); REACTIVE LYMPHS % (MANUAL) 2 % (0-0); SEG#(MANUAL) 2.21 x10^3/uL (1.8-6.8); SEGS% (MANUAL) 35 % (42-75)
[2020-06-23 14:47] LABS: HYPOCHROMIA 1+; PELGER-HUET CELLS 1+; SMUDGE CELLS 1+
[2020-06-23 14:48] LABS: <PLATELET ESTIMATE> DECREASED; <PLT MORPHOLOGY> NORMAL PLT MORPH
[2020-06-23] MEDS: STERILE WATER IV SCH (17:49)
[2020-06-23] MEDS: DEXTROSE 70% IV SCH (17:49)
[2020-06-24] VITALS (8 sets, daily range): BP systolic 119–131; BP diastolic 76–84
[2020-06-24] MEDS: methylPREDNISolone SOD SUCC 125 MG/2 ML IVPush SCH ×4 (01:58→20:20)
[2020-06-24] MEDS: NOREPINEPHRINE 8 MG in SODIUM CHLORIDE 0.9% 242 ML IV PRN (01:59)
[2020-06-24] MEDS: PROPOFOL 100 ML IV PRN ×3 (01:59→20:22)
[2020-06-24] MEDS: ALBUMIN HUMAN 25% 100 ML IV SCH ×4 (03:57→20:21)
[2020-06-24 06:09] LABS: MEAN CORPUSCULAR HEMOGLOBIN 28.4 pg (27.5-34.5); MEAN CORPUSCULAR HGB CONC 32.6 g/dL (33.2-36.2); MEAN PLATELET VOLUME 8.3 fL (7.4-10.4); PLATELET COUNT 53 x10^3/uL (130-400); RED BLOOD COUNT 3.29 x10^6/uL (4.38-5.82); RED CELL DISTRIBUTION WIDTH 16.8 % (9.4-14.8)
[2020-06-24 06:10] LABS: ALBUMIN 2.7 g/dL (3.4-5.0); ANION GAP 28 mmol/L (5-15); CALCIUM 7.9 mg/dL (8.5-10.1); CHLORIDE 99 mmol/L (98-107)
[2020-06-24 06:14] LABS: ALANINE AMINOTRANSFERASE 73 U/L (12-78); ALKALINE PHOSPHATASE 381 U/L (45-117); BILIRUBIN,TOTAL 0.4 mg/dL (0.2-1.0); CREATININE 1.26 mg/dL (0.7-1.3); TOTAL PROTEIN 4.6 g/dL (6.4-8.2)
[2020-06-24] MEDS: MICAFUNGIN 100 MG in SODIUM CHLORIDE 0.9% 100 ML IV SCH (06:36)
[2020-06-24] MEDS ORDERED: SODIUM BICARB 8.4%, 50ML SYRINGE IVPush ONE ×2 (07:00)
[2020-06-24] MEDS: STERILE WATER IV SCH (07:23)
[2020-06-24] MEDS: DEXTROSE 70% IV SCH (07:23)
[2020-06-24 07:52] LABS: MD YES
[2020-06-24 07:55] LABS: <PLATELET ESTIMATE> DECREASED; <PLT MORPHOLOGY> NORMAL PLT MORPH; ANISOCYTOSIS 1+; BAND#(MANUAL) 0.36 x10^3/uL; BANDS%(MANUAL) 9 % (0-7); HYPOCHROMIA 1+; LYMPH#(MANUAL) 1.24 x10^3/uL (1-3.4); LYMPHS% (MANUAL) 31 % (22-44); METAMYELOCYTES# (MANUAL) 0.12 x10^3/uL (0-0); METAMYELOCYTES% (MANUAL) 3 % (0-1); MONOS#(MANUAL) 0.16 x10^3/uL (0.3-2.7); MONOS% (MANUAL) 4 % (2-9); POLYCHROMASIA 1+; SEG#(MANUAL) 2.12 x10^3/uL (1.8-6.8); SEGS% (MANUAL) 53 % (42-75)
[2020-06-24 07:56] LABS: SMUDGE CELLS 1+
[2020-06-24] MEDS: MEROPENEM 1 GM in SODIUM CHLORIDE 0.9% 100 ML IV SCH ×2 (09:15→16:50)
[2020-06-24] MEDS: PHENYLEPHRINE 50 MG in SODIUM CHLORIDE 0.9% 245 ML IV PRN (09:15)
[2020-06-24] MEDS: SODIUM BICARBONATE 650 MG TABLET PO SCH ×3 (09:19→20:22)
[2020-06-24] MEDS: SULFAMETH/TRIMETHOPRIM 40-8MG/ML SUSP. PO SCH (09:19)
[2020-06-24] MEDS: SODIUM CHLORIDE FLUSH 10ML SYR IVF SCH ×2 (09:19→20:21)
[2020-06-24] MEDS: RIFAXIMIN 550 MG TABLET PO SCH (09:19)
[2020-06-24] MEDS: PSYLLIUM PACKET PO SCH ×2 (09:20→20:20)
[2020-06-24] MEDS: ACETAMINOPHEN 650 MG/20.3 ML UDC PO PRN (09:28)
[2020-06-24] MEDS ORDERED: SODIUM BICARBONATE IV SCH ×2 (10:00)
[2020-06-24] MEDS ORDERED: [UNRECOGNIZED DRUG - OTHER] IV SCH ×2 (10:00)
[2020-06-24] MEDS ORDERED: DEXTROSE IV SCH ×2 (10:00)
[2020-06-24] MEDS ORDERED: STERILE WATER IV SCH ×2 (10:00)
[2020-06-24] MEDS: OXYcodone IR 5MG TABLET PO PRN ×2 (12:06→20:36)
[2020-06-24] MEDS: SODIUM BICARBONATE 8.4% 150 MEQ in DEXTROSE 5% 1,000 ML IV SCH (17:35)
[2020-06-25] VITALS (9 sets, daily range): BP systolic 115–147; BP diastolic 77–86
[2020-06-25] MEDS: MEROPENEM 1 GM in SODIUM CHLORIDE 0.9% 100 ML IV SCH ×2 (00:57→09:23)
[2020-06-25] MEDS: methylPREDNISolone SOD SUCC 125 MG/2 ML IVPush SCH ×2 (01:07→07:01)
[2020-06-25] MEDS: OXYcodone IR 5MG TABLET PO PRN (01:07)
[2020-06-25] MEDS: ALBUMIN HUMAN 25% 100 ML IV SCH ×2 (03:59→09:23)
[2020-06-25] MEDS: SODIUM BICARBONATE 8.4% 150 MEQ in DEXTROSE 5% 1,000 ML IV SCH (03:59)
[2020-06-25] MEDS: PROPOFOL 100 ML IV PRN ×2 (04:39→09:55)
[2020-06-25 05:29] LABS: MEAN CORPUSCULAR HEMOGLOBIN 28.5 pg (27.5-34.5); MEAN PLATELET VOLUME 8.1 fL (7.4-10.4); RED BLOOD COUNT 3.06 x10^6/uL (4.38-5.82); RED CELL DISTRIBUTION WIDTH 15.7 % (9.4-14.8)
[2020-06-25 05:32] LABS: ANION GAP 25 mmol/L (5-15); CHLORIDE 100 mmol/L (98-107)
[2020-06-25 05:34] LABS: CALCIUM 7.7 mg/dL (8.5-10.1); CREATININE 1.03 mg/dL (0.7-1.3)
[2020-06-25 05:59] LABS: MD YES; PLATELET COUNT 28 x10^3/uL (130-400)
[2020-06-25 06:06] LABS: <PLATELET ESTIMATE> DECREASED; <PLT MORPHOLOGY> NORMAL PLT MORPH; ANISOCYTOSIS 1+; BANDS%(MANUAL) 10 % (0-7); HYPOCHROMIA 1+; LYMPH#(MANUAL) 0.64 x10^3/uL (1-3.4); LYMPHS% (MANUAL) 32 % (22-44); MONOS% (MANUAL) 5 % (2-9); POLYCHROMASIA 1+; SEG#(MANUAL) 1.06 x10^3/uL (1.8-6.8); SEGS% (MANUAL) 53 % (42-75)
[2020-06-25 06:07] LABS: STOMATOCYTES 1+
[2020-06-25] MEDS: MICAFUNGIN 100 MG in SODIUM CHLORIDE 0.9% 100 ML IV SCH (07:01)
[2020-06-25 07:41] LABS: D-DIMER (DIC) 5.43 ug/mlFEU (0.00-0.52); PROTIME 13.5 Seconds (9.6-11.5)
[2020-06-25] MEDS ORDERED: ESOMEPRAZOLE 40 MG IV IVPush SCH (08:00)
[2020-06-25] MEDS: RIFAXIMIN 550 MG TABLET PO SCH (09:00)
[2020-06-25] MEDS ORDERED: FENTANYL PF 1,000 MCG in SODIUM CHLORIDE 0.9% 80 ML IV PRN (09:00)
[2020-06-25] MEDS ORDERED: SODIUM BICARBONATE 650 MG TABLET PO SCH (09:00)
[2020-06-25] MEDS: PSYLLIUM PACKET PO SCH (09:00)
[2020-06-25] MEDS: SODIUM CHLORIDE FLUSH 10ML SYR IVF SCH (09:23)
[2020-06-25] MEDS: ERGOCALCIFEROL 50,000 UNIT CAPSULE PO SCH (11:59)
[2020-06-25] MEDS ORDERED: ATROPINE OPHTH SOLN 1%, 5ML PO PRN (12:00)
[2020-06-25] MEDS ORDERED: MORPHINE SULFATE 4 MG/ML, 1ML IV ONE (12:00)
[2020-06-25] MEDS ORDERED: LORazepam 2 MG/ML, 1ML IV ONE (12:00)
[2020-06-25] MEDS: LORazepam 2 MG/ML, 1ML IVPush PRN ×5 (12:45→16:36)
[2020-06-25] MEDS: MORPHINE SULFATE 4 MG/ML, 1ML IVPush PRN ×2 (12:45→14:05)
[2020-06-25] MEDS: morphine SULFATE 10 MG/ML, 1ML IVPush PRN ×3 (14:47→16:36)
== END 2020-06-25 21:50 | disposition expired | DRG 977 ==
LOC: ED 13:04 → EDIP 13:05 → ED 13:06 → 3N 14:54 → CCU 06-21 03:36 → 4NW 06-25 15:18
PROVIDERS: ADMIT Hospitalist; ATTEND Hospitalist
PROC: 0TB13ZX Excision of Left Kidney, Percutaneous Approach, Diagnostic (ICD-10-PCS; 2020-06-09)
PROC: 30233R1 Transfusion of Nonautologous Platelets into Peripheral Vein, Percutaneous Approach (ICD-10-PCS; 2020-06-16)
PROC: 0W9G3ZZ Drainage of Peritoneal Cavity, Percutaneous Approach (ICD-10-PCS; 2020-06-17)
PROC: 0FB13ZX Excision of Right Lobe Liver, Percutaneous Approach, Diagnostic (ICD-10-PCS; 2020-06-20)
PROC: 5A1945Z Respiratory Ventilation, 24-96 Consecutive Hours (ICD-10-PCS; principal; 2020-06-22)
PROC: 0BH17EZ Insertion of Endotracheal Airway into Trachea, Via Natural or Artificial Opening (ICD-10-PCS; 2020-06-22)
PROC: 0W993ZZ Drainage of Right Pleural Cavity, Percutaneous Approach (ICD-10-PCS; 2020-06-23)
PROC: 30233N1 Transfusion of Nonautologous Red Blood Cells into Peripheral Vein, Percutaneous Approach (ICD-10-PCS; 2020-06-23)
PROC: 30233M1 Transfusion of Nonautologous Plasma Cryoprecipitate into Peripheral Vein, Percutaneous Approach (ICD-10-PCS; 2020-06-25)
DX: N04.8 Nephrotic syndrome with other morphologic changes (principal); B20 Human immunodeficiency virus [HIV] disease; E43 Unspecified severe protein-calorie malnutrition; D65 Disseminated intravascular coagulation [defibrination syndrome]; G93.41 Metabolic encephalopathy; A41.9 Sepsis, unspecified organism; J18.9 Pneumonia, unspecified organism; R65.21 Severe sepsis with septic shock; J96.01 Acute respiratory failure with hypoxia; K72.00 Acute and subacute hepatic failure without coma; K92.2 Gastrointestinal hemorrhage, unspecified; D68.59 Other primary thrombophilia; E87.1 Hypo-osmolality and hyponatremia; J98.11 Atelectasis; E87.2 Acidosis; C83.30 Diffuse large B-cell lymphoma, unspecified site; J90 Pleural effusion, not elsewhere classified; R18.8 Other ascites; D70.9 Neutropenia, unspecified; Z51.5 Encounter for palliative care; Z66 Do not resuscitate; E16.2 Hypoglycemia, unspecified; E88.09 Other disorders of plasma-protein metabolism, not elsewhere classified; E77.8 Other disorders of glycoprotein metabolism; D64.9 Anemia, unspecified; E78.1 Pure hyperglyceridemia; E83.51 Hypocalcemia; E86.0 Dehydration; E88.3 Tumor lysis syndrome; N04.A Nephrotic syndrome with C3 glomerulonephritis; N17.9 Acute kidney failure, unspecified; R94.6 Abnormal results of thyroid function studies; Z87.891 Personal history of nicotine dependence; Z79.899 Other long term (current) drug therapy; Z79.891 Long term (current) use of opiate analgesic; Z79.01 Long term (current) use of anticoagulants
CPT/HCPCS: 32555; 36415; 36600; 82042; 82150; 84145; 84155; 87449; 87536; 87806; 89051; 96374; 99291; J3490; 47000; 49083; 50200; 70450; 71045; 71260; 74177; 76705; 76770; 77012; 80048; 80053; 80061; 80069; 80074; 81001; 81003; 82103; 82140; 82306; 82330; 82436; 82550; 82570; 82728; 82800; 82803; 82947; 82962; 82977; 83010; 83516; 83520; 83525; 83540; 83550; 83605; 83615; 83735; 83880; 83970; 84100; 84133; 84156; 84157; 84165; 84206; 84300; 84439; 84443; 84481; 84484; 84550; 84681; 85014; 85018; 85025; 85045; 85049; 85379; 85384; 85610; 85651; 85730; 86038; 86140; 86160; 86162; 86256; 86361; 86592; 86644; 86645; 86701; 86702; 86777; 86850; 86880; 86900; 86923; 87040; 87070; 87081; 87205; 87324; 87496; 87535; 88112; 88300; 88305; 88307; 88313; 88341; 88342; 88360; 93005; 93306; 93970; 94003; 99156; 99157; G0378; J0696; J1644; J1940; J2185; J2248; J2250; J2704; J2783; J3010; J3480; J7070; P9045; P9047; Q9967; G0475; J2060; J2270; J2310; J2370; J2930; J7040; J7050; P9012; P9016; P9035